=== PATIENT | female | born 1975 | race Caucasian/White ===

== ENCOUNTER → 2017-04-03 | Outpatient (CLI) | payer MEDICAID | LOC: ZCOL.LAB 19:17 | DX: J32.4 Chronic pansinusitis (principal) ==

== ENCOUNTER → 2018-05-22 | Outpatient (CLI) | payer BC | LOC: COL.RAD 06:53 | DX: R11.0 Nausea (principal) | CPT/HCPCS: A9541 ==

== ENCOUNTER → 2019-09-10 | Outpatient (CLI) | payer BC | LOC: COL.RAD 13:57 | DX: K59.09 Other constipation (principal) ==

== ENCOUNTER → 2019-11-22 | Outpatient (CLI) | payer BC | LOC: MC.RAD 13:45 | DX: Z12.31 Encounter for screening mammogram for malignant neoplasm of breast (principal) ==

== ENCOUNTER → 2020-04-25 | Outpatient (CLI) | payer BC ==
[~2020-04-25] VITALS: Ht 171.4 cm; Wt 116.6 kg
[~2020-04-25] MED LIST: CYMBALTA 20MG20 MG PO; GLUCOPHAGE XR750 MG PO; K-DUR 10 MEQ T10 MEQ PO; LASIX 20MG TABL20 MG PO; MULTIVITAMIN FO1 CAP PO; OZEMPIC0.25 MG/0. SQ; PROTONIX 40MG T40 MG PO
[2020-04-25 16:21] VITALS: BP 104/72; PULSE 88
== END ==
LOC: LIGHT 12-28 15:54
DX: E66.01 Morbid (severe) obesity due to excess calories (principal); Z68.39 Body mass index [BMI] 39.0-39.9, adult; E11.9 Type 2 diabetes mellitus without complications; Z79.84 Long term (current) use of oral hypoglycemic drugs
CPT/HCPCS: G0463

== ENCOUNTER → 2020-05-09 | Outpatient (CLI) | payer BC | LOC: LIGHT 10:49 | DX: E66.01 Morbid (severe) obesity due to excess calories (principal); Z68.39 Body mass index [BMI] 39.0-39.9, adult; E11.9 Type 2 diabetes mellitus without complications; K21.9 Gastro-esophageal reflux disease without esophagitis | CPT/HCPCS: G0463 ==

== ENCOUNTER → 2020-06-08 | Outpatient (CLI) | payer BC ==
[~2020-06-08] VITALS: Ht 171.4 cm; Wt 116.8 kg
[2020-06-08 15:23] VITALS: BP 104/60; PULSE 88
== END ==
LOC: LIGHT 15:06
DX: E66.8 Other obesity (principal); Z68.39 Body mass index [BMI] 39.0-39.9, adult; E11.9 Type 2 diabetes mellitus without complications
CPT/HCPCS: G0463

== ENCOUNTER → 2020-06-16 | Outpatient (CLI) | payer BC | LOC: LIGHT 15:09 ==

== ENCOUNTER → 2020-06-29 | Outpatient (CLI) | payer BC ==
[~2020-06-29] MED LIST changes: +GLUCOPHAGE1000 MG PO
== END ==
LOC: BHSO 09:01

== ENCOUNTER → 2020-07-03 | Outpatient (CLI) | payer BC ==
[~2020-07-03] VITALS: Ht 171.4 cm; Wt 117.0 kg
[2020-07-03 15:12] VITALS: BP 116/80; PULSE 64
== END ==
LOC: LIGHT 10:25
DX: E66.01 Morbid (severe) obesity due to excess calories (principal); Z68.39 Body mass index [BMI] 39.0-39.9, adult; K21.9 Gastro-esophageal reflux disease without esophagitis; E11.9 Type 2 diabetes mellitus without complications
CPT/HCPCS: G0463

== ENCOUNTER 2020-07-18 06:32 | Day surgery (SDC) | payer BC ==
[~2020-07-18] VITALS: Ht 172.7 cm; Wt 118.3 kg
[2020-07-18 07:12] VITALS: BP 114/59; PULSE 82; TEMP 98
[2020-07-18] MEDS ORDERED: K-TAB10 PO (07:25)
[2020-07-18] MEDS ORDERED: CYANOCOBAL1000 MCG/1 IM (07:27)
[2020-07-18] MEDS ORDERED: PROTONIX 40MG T40 MG PO (07:28)
[2020-07-18] MEDS ORDERED: CLARITIN 1010 MG/TAB PO (07:32)
[2020-07-18] MEDS ORDERED: LINZESS290CAP PO (07:33)
[2020-07-18] MEDS ORDERED: VITAMIN D 1.25 MG PO (07:35)
[2020-07-18 08:05] VITALS: BP 114/65; PULSE 80; TEMP 98.5
[2020-07-18 08:20] VITALS: BP 116/69; PULSE 72
[2020-07-18 08:35] VITALS: BP 118/69; PULSE 76
[2020-07-18 08:50] VITALS: BP 112/65; PULSE 73
--- NOTE | 2020-07-18 09:14 | NUR ---
Pt returned via cart to recliner in bay 3 s/p procedure. Ambulated with SBA to recliner. Pt drowsy. VSS-see flowsheet. Friend present in room and already spoke with Dr Butterfield after procedure was complete. Pt tolerated juice and water. IV removed with pressure dressing applied. Pt dressed for dc. Discharge teaching completed, pt and friend verbalized understanding. Pt taken via wheelchair to private vehicle for dc home with friend driving.
== END 2020-07-18 09:14 | disposition home or self-care (01) ==
LOC: SDCO 06:32
DX: K21.0 Gastro-esophageal reflux disease with esophagitis (principal); K44.9 Diaphragmatic hernia without obstruction or gangrene; K29.30 Chronic superficial gastritis without bleeding; E66.01 Morbid (severe) obesity due to excess calories; Z68.39 Body mass index [BMI] 39.0-39.9, adult; Z90.49 Acquired absence of other specified parts of digestive tract; E11.9 Type 2 diabetes mellitus without complications; F32.9 Major depressive disorder, single episode, unspecified; F41.9 Anxiety disorder, unspecified; I87.2 Venous insufficiency (chronic) (peripheral); Z86.19 Personal history of other infectious and parasitic diseases; Z79.84 Long term (current) use of oral hypoglycemic drugs; Z88.2 Allergy status to sulfonamides
CPT/HCPCS: J2250; J3010; J7030

== ENCOUNTER → 2020-08-03 | Outpatient (CLI) | payer BC ==
[~2020-08-03] VITALS: Ht 172.7 cm; Wt 118.6 kg
[~2020-08-03] MED LIST changes: +CLARITIN 1010 MG/TAB PO; +CYANOCOBAL1000 MCG/1 IM; -CYMBALTA 20MG20 MG PO; +CYMBALTA 60MG60 MG PO; +K-TAB10 PO; +LINZESS290CAP PO; +VITAMIN D 1.25 MG PO
[2020-08-03 14:40] VITALS: BP 106/76; PULSE 80
== END ==
LOC: LIGHT 14:31
DX: E66.01 Morbid (severe) obesity due to excess calories (principal); Z68.39 Body mass index [BMI] 39.0-39.9, adult; E11.9 Type 2 diabetes mellitus without complications
CPT/HCPCS: G0463

== ENCOUNTER 2020-08-09 14:10 | Inpatient (IN) | payer BC ==
[~2020-08-09] VITALS: Ht 172.7 cm; Wt 112.0 kg
[2020-09-27] VITALS (19 sets, daily range): BP systolic 101–126; BP diastolic 61–76; PULSE 67–103; TEMP 97.5–98
--- NOTE | 2020-09-27 06:10 | NUR ---
0546 PATIENT ADMITTED TO AMB UNIT FOR SURGERY. PATIENT WALKS WITH STEADY GAIT. PATIENT STATES SHE IS ANXIOUS BECAUSE SHE CANNOT HAVE SOMEONE WITH HER. REASSURED PATIENT. PATIENT ALERT AND ORIENTED X 3. CONSENT SIGNED. LUNGS CTA. HEART SOUNDS S1,S2 AND REGULAR. BOWEL SOUNDS HEARD IN ALL QUADRANTS. PATIENT ON HER PHONE ALOT WHILE GETTING PATIENT READY FOR SURGERY.
[2020-09-27] MEDS ORDERED: KLONOPIN 0.5MG0.5 MG PO (07:05)
--- NOTE | 2020-09-27 16:18 | NUR ---
1130-Pt continue in PACU for continued care. Pt rests with eyes closed, resp even/unlabored. VSS. pt incision sites secured with bandaid, continue cdi. Rickie drain to LLQ secured to abd. Minimal drainage noted in bulg. Mason cath to dd, secured to right thigh, clear yellow urine noted in tubing. Pt VSS. 1210-Pt resting off and on. c/o pain in epigastric region when she takes a breath in. Repeat dose dil 0.5mg given IV. 1425-Pt reporting discomfort in LLQ. reporting intermitten stabbing pain and "gassy pain". Dil 0.5mg given IV. 1513-Assistance called to help set up CAR RENTAL MANAGER for pain control. Pt rolled to semi-right side and pillow used to support back and abd. Pt reporting discomfort is better. 1540-Pt report called to david Vila. pt taken per bed to room 348. Monitors reapplied and activated. Pt reporting that her pain is under control. Denies needs. VSS.
--- NOTE | 2020-09-27 19:28 | NUR ---
Report received from VIVI Vila. Pt lying in bed. Reports pain controlled by PLATE STRAIGHTENER base rate. Denies needs at this time. Will continue to monitor.
--- NOTE | 2020-09-27 21:00 | NUR ---
Shift assessment complete. Pt lying in bed. SYNTHETIC CHEMIST pump with hydromorphone running, pt reports pain well controlled. SCDs on BLE. Abdominal lap sites x5 covered by bandaids, CDI. MINAL drain with 30 mls bright red output. Amson in place with clear yellow output. Reports increased pain with movement and deep breaths. Denies other needs at this time.
[2020-09-28] VITALS (7 sets, daily range): BP systolic 109–125; BP diastolic 57–71; PULSE 64–101; TEMP 97.7–98.5
--- NOTE | 2020-09-28 06:09 | NUR ---
Pain remains controlled with QUARTZ CUTTER. MINAL drain with 160 mls bright red output this shift. Sample collected and sent to lab for lipase levels. Blood sugars remain controlled without insulin administration this shift. Abdominal lap sites CDI. Mason with clear yellow output. Pt reports increasing feelings of gas and bloating this AM but reports difficulty passing gas. Continuing to monitor.
--- NOTE | 2020-09-28 07:30 | NUR ---
patient taken for x-ray via wheelchair.
--- NOTE | 2020-09-28 07:46 | NUR ---
PATIENT ARRIVED BACK TO ROOM VIA WHEELCHAIR FROM X-RAY.
--- NOTE | 2020-09-28 09:05 | NUR ---
PATIENT SHIFT ASSESSMENT COMPLETED AT THIS TIME. MINAL DRAIN FULL. THIS NURSE EMPTIED 80 MLS OF BLOODY DRAINAGE AND PLACED BACK TO BULB SUCTION. 20 ML OF BLOODY DRAINAGE IMMEDITELY FILLED INTO DRAIN, EMPTIED AND PLACED BACK TO BULB SUCTION. MINAL BULB BEGAN TO FILL AGAIN. VIVI CHAN CALLED. MINAL DRAIN CHECKED WITH SECOND NURSE, 20MLS EMPTIED A SECOND TIME. MINAL DRESSING IS CD&I. ABDOMINAL LAP SITES DRESSED WITH BANDAIDS AND ARE CD&I. CROCKETT DRAINING CLEAR YELLOW URINE. PAIN WELL CONTROLLED WITH SKIDDER RUNNER. WARM BLAKET TO ABDOMEN. PATIENT DENIES ANY OTHER NEEDS AT THIS TIME.
[2020-09-28 09:08] LABS: BASO % 0.3 % (0.0-2.0); EOS % 0.4 % (0-4.0); GRAN # 5.4 (1.4-6.5); GRAN % 77.6 % (42.2-75.2); HEMATOCRIT 37.4 % (37.0-47.0); HEMOGLOBIN 12.4 g/dl (12.5-16.0); LYMPH % 13.9 % (20.0-51.0); MEAN CELL VOLUME 91 fl (80.0-100.0); MEAN CORPUSCULAR HEMOGLOBIN 30 pg (27.0-31.0); MEAN CORPUSCULAR HGB CONC 33 g/dl (33.0-37.0); MEAN PLATELET VOLUME 10.4 fl (7.4-10.4); MONO # 0.5 (0.1-0.6); MONO % 7.5 % (1.7-9.3); PLATELET COUNT 218 K/mm3 (130-400); RED BLOOD COUNT 4.12 M/mm3 (4.10-5.30); REDCELL DISTRIBUTION WIDTH-CV 12.6 % (11.5-14.5)
[2020-09-28 09:10] LABS: ALBUMIN 3.7 gm/dL (3.5-5.0); BILIRUBIN,TOTAL 0.4 mg/dL (0.0-1.0); CALCIUM 8.4 mg/dL (8.4-10.2); CREATININE, serum 0.6 (0.52-1.25); POTASSIUM 3.7 mmol/L (3.4-5.0); TOTAL PROTEIN 5.8 gm/dL (6.4-8.2)
--- NOTE | 2020-09-28 12:00 | NUR ---
PATIENT STARTED ON CLEAR LIQUID GASTRIC BYPASS DIET. PATIENT TOLERATING WELL AT THIS TIME. PATIENT REPORTS THAT SHE IS NOW BURPING.
--- NOTE | 2020-09-28 12:06 | NUR ---
First visit from the matcher. No needs right now.
--- NOTE | 2020-09-28 14:27 | NUR ---
[facility] met with patient to discuss discharge planning. Patient lives in [place], [place] with her significant other, Jesus (ph#[phone]). Patient sees Dr. Huerta for primary care and obtains medications from [facility] with no difficulties. Patient does not use any DME and is independent with ADLS. Patient does not have Advance Directives. Patient is not and her legal next of kin would be her two biological children, Shubham (ph#[phone]) and Margaret. Patient states she has three "step children" also, Miller, Jorje, and Noemy. Patient plans to return home upon discharge with Jesus providing her transportation home. SW will continue to follow.
--- NOTE | 2020-09-28 16:44 | NUR ---
patient iv fluid rate changed to 75ml/hr per protocol. patient tolerating diet without difficulties. iv placed on standby. patient reports iv site is puffy and hurts.
--- NOTE | 2020-09-28 18:32 | NUR ---
PATIENT REPORTS THAT SHE IS VOIDING POST-CROCKETT REMOVAL. HAT EMPTIED BY PLASTIC TILE SETTER. PATIENT GIVEN PRN PO PAIN MEDICATION AFTER MINAL DRAIN WAS EMPTIED, SHE REPORTS THAT EMPTYING THE DRAIN CAUSES THE PAIN TO INCREASE. WILL REPORT OFF TO ONCOMING NURSE.
[2020-09-29 00:12] VITALS: BP 112/58; PULSE 73; TEMP 98.8
[2020-09-29 04:52] VITALS: BP 117/76; PULSE 75; TEMP 98.3
[2020-09-29 08:28] VITALS: BP 113/55; PULSE 77; TEMP 98.6
--- NOTE | 2020-09-29 08:39 | NUR ---
PATIENT HAD CALLED OUT REQUESTING PAIN MEDICATION. PATIENT REPORTS THAT THE PAIN SPIKED WHEN SHE WAS UP AMBULATING IN THE HALLWAYS AND WHEN SHE SAT BACK DOWN INTO BED. PATIENT STATES THAT THE PAIN IMPROVED ONCE SHE LAID DOWN. WILL PROVIDE PRN PAIN MEDICATION WITH AM MEDS. CALL LIGHT IN REACH. PATIENT DENIES ANY OTHER NEEDS AT THIS TIME.
[2020-09-29 09:17] LABS: BASO % 0.8 % (0.0-2.0); EOS # 0.1 (0.0-0.7); EOS % 1.9 % (0-4.0); GRAN # 3.2 (1.4-6.5); GRAN % 66.4 % (42.2-75.2); HEMOGLOBIN 12.2 g/dl (12.5-16.0); LYMPH # 1.1 (1.2-3.4); LYMPH % 22.7 % (20.0-51.0); MEAN CELL VOLUME 92 fl (80.0-100.0); MEAN CORPUSCULAR HEMOGLOBIN 31 pg (27.0-31.0); MEAN CORPUSCULAR HGB CONC 33 g/dl (33.0-37.0); MONO # 0.4 (0.1-0.6); MONO % 7.8 % (1.7-9.3); PLATELET COUNT 198 K/mm3 (130-400); REDCELL DISTRIBUTION WIDTH-CV 12.7 % (11.5-14.5)
[2020-09-29 09:22] LABS: HEMATOCRIT 36.6 % (37.0-47.0)
[2020-09-29 09:27] LABS: ALBUMIN 3.4 gm/dL (3.5-5.0); BILIRUBIN,TOTAL 0.4 mg/dL (0.0-1.0); CALCIUM 8.6 mg/dL (8.4-10.2); CREATININE, serum 0.61 (0.52-1.25); POTASSIUM 3.6 mmol/L (3.4-5.0); TOTAL PROTEIN 5.7 gm/dL (6.4-8.2)
[2020-09-29 11:40] VITALS: BP 101/85; PULSE 89; TEMP 98.5
--- NOTE | 2020-09-29 16:11 | NUR ---
PATIENTS DIET ADVANCED TO FULL LIQUIDS PER YOANDY-EN-Y POST-OP DIET ORDERS. PATIENT AMBULATING IN HALLWAYS INDEPENDENTLY THROUGHOUT THE SHIFT. CALL LIGHT IN REACH. PATIENT RESTING IN BED. MINAL DRAIN EMPTIED AND PRN PAIN MEDICATION GIVEN. WILL CONTINUE TO MONITOR.
[2020-09-29 16:13] VITALS: BP 107/62; PULSE 82; TEMP 98.1
--- NOTE | 2020-09-29 19:00 | NUR ---
PATIENT COMPLAINING OF IV SITE BOTHERING HER. DR. BREWSTER SAID OKAY TO REMOVE. IV REMOVED.
--- NOTE | 2020-09-29 19:20 | NUR ---
dr. bender notified that the patients iv has infiltrated. okay for patient to have no iv site.
[2020-09-29 20:08] VITALS: BP 132/77; PULSE 86; TEMP 98.7
--- NOTE | 2020-09-29 21:00 | NUR ---
PATIENT RESTING IN BED. PATIENT SAYS HER GAS PAINS ARE BOTHERING HER. SHE IS BURPING BUT NOT PASSING GAS. PATIENT TOOK LIQUID PAIN MEDICATION.
[2020-09-30 00:28] VITALS: BP 122/75; PULSE 8; PULSE 80; TEMP 98.4
--- NOTE | 2020-09-30 05:40 | NUR ---
Patient awake this morning with pain. Given more pain medication. Patient still having a lot of output from MINAL drain. Patient reports that she has started to pass gas.
[2020-09-30 07:02] LABS: BASO % 0.4 % (0.0-2.0); EOS # 0.1 (0.0-0.7); EOS % 2.3 % (0-4.0); GRAN # 4.2 (1.4-6.5); GRAN % 75.1 % (42.2-75.2); HEMATOCRIT 38.7 % (37.0-47.0); HEMOGLOBIN 12.8 g/dl (12.5-16.0); LYMPH # 0.8 (1.2-3.4); LYMPH % 14.1 % (20.0-51.0); MEAN CELL VOLUME 90 fl (80.0-100.0); MEAN CORPUSCULAR HEMOGLOBIN 30 pg (27.0-31.0); MEAN CORPUSCULAR HGB CONC 33 g/dl (33.0-37.0); MEAN PLATELET VOLUME 10.6 fl (7.4-10.4); MONO # 0.4 (0.1-0.6); MONO % 7.7 % (1.7-9.3); PLATELET COUNT 224 K/mm3 (130-400); RED BLOOD COUNT 4.31 M/mm3 (4.10-5.30); REDCELL DISTRIBUTION WIDTH-CV 12.5 % (11.5-14.5)
[2020-09-30 07:12] LABS: ALBUMIN 3.5 gm/dL (3.5-5.0); BILIRUBIN,TOTAL 0.5 mg/dL (0.0-1.0); CALCIUM 8.8 mg/dL (8.4-10.2); CREATININE, serum 0.71 (0.52-1.25); POTASSIUM 3.4 mmol/L (3.4-5.0); TOTAL PROTEIN 5.9 gm/dL (6.4-8.2)
[2020-09-30 08:00] VITALS: BP 117/71; PULSE 80; TEMP 98.3
--- NOTE | 2020-09-30 09:00 | NUR ---
Patient alert and oriented, answers questions appropraitely. See assessment. Abdomen soft, non tender, non distended. Bowel sounds active x4 quads. +Flatus. No bowel movenment. Lap sites to abdomen with edges well approximated, no redness or drainage noted. MINAL drain to LLQ, compressed, moderated amount of serosanguinous drainage noted. Post op exercises reviewed with patient, no c/o at this time.
[2020-09-30] MEDS ORDERED: NORCOELIX PO (10:10)
[2020-09-30] MEDS ORDERED: ZOFRAN 4MG T4 MG/TAB PO (10:11)
--- NOTE | 2020-09-30 10:30 | NUR ---
Dr Butterfield here to see patient, see orders.
--- NOTE | 2020-09-30 11:12 | NUR ---
MINAL drain removed per drs order.
--- NOTE | 2020-09-30 11:15 | NUR ---
Discharge instructions reviewed with patient, verbalized understanding. Discharged ambulatory to auto/home with family at 1115.
== END 2020-09-30 11:15 | disposition home or self-care (01) | DRG 621 ==
LOC: SURG 09-13 07:30 → INPTSU 09-27 05:43 → SURG 09-27 07:30
PROVIDERS: ADMIT Surgery
PROC: 0D164ZA Bypass Stomach to Jejunum, Percutaneous Endoscopic Approach (ICD-10-PCS; principal; 2020-09-27 07:30)
DX: E66.01 Morbid (severe) obesity due to excess calories (principal); E11.9 Type 2 diabetes mellitus without complications; K21.9 Gastro-esophageal reflux disease without esophagitis; Z68.38 Body mass index [BMI] 38.0-38.9, adult; F41.9 Anxiety disorder, unspecified; F32.9 Major depressive disorder, single episode, unspecified; Z90.49 Acquired absence of other specified parts of digestive tract; Z87.891 Personal history of nicotine dependence
CPT/HCPCS: A4314; C9113; J0690; J1100; J1170; J1650; J1956; J2175; J2250; J2270; J2370; J2405; J2550; J2704; J3010; J3480; J7120

== ENCOUNTER 2020-12-14 09:28 | Observation (INO) | payer BC ==
[~2020-12-14] VITALS: Ht 170.2 cm; Wt 98.2 kg
[2020-12-14] VITALS (9 sets, daily range): BP systolic 96–112; BP diastolic 45–96; PULSE 56–86; TEMP 97.2–98.1
[~2020-12-14 09:28] MED LIST changes: +KLONOPIN 0.5MG0.5 MG PO; +NORCOELIX PO; +ZOFRAN 4MG T4 MG/TAB PO
[2020-12-14] MEDS ORDERED: COLLAGEN BIOTIN PO (12:14)
[2020-12-14] MEDS ORDERED: MCT OIL PO (12:15)
[2020-12-14] MEDS ORDERED: CALCIUM CARBON650 M2 PO (12:16)
--- NOTE | 2020-12-14 16:20 | NUR ---
Pt to OR with OR nurseWanda. Report given
--- NOTE | 2020-12-14 18:30 | NUR ---
Patient arrived to the floor from surgery at 1745. She is alert and oriented. Denies pain and nausea at this time. Oriented patient to room. She was asking about food, explained how to order. Her boyfriend is at bedside. Explained that she will be on post-op vital signs for a few hours. Lapsites to abdomen are well approximated. Patient is tolerating clear liquids well. No other changes at this time. Call light within reach.
--- NOTE | 2020-12-14 23:00 | NUR ---
Patient is complaining of being itchy all over and requests to take a shower. IV site wrapped up and patient assisted into the shower.
[2020-12-15 00:23] VITALS: BP 100/57; PULSE 65; TEMP 98.8
[2020-12-15 04:37] VITALS: BP 92/52; PULSE 61; TEMP 98.1
--- NOTE | 2020-12-15 05:05 | NUR ---
Patient doing well this morning. Still having pain to her incisions. [place] given for pain PRN throughout the shift. Patient is drinking plenty of fluids. No other needs at this time.
--- NOTE | 2020-12-15 07:51 | NUR ---
PT INDEPENDENT IN ROOM AND HALLS. AMBULATING AD YOON. STEADY GAIT. A/O X3. PAIN CONTROLLED WITH PO PAIN MEDS. PT REPORTS REMOVING BANDAIDS TO LAP SITES WHICH ARE CDI. LAST DOSE OF IV ABX GIVEN.
[2020-12-15 08:29] VITALS: BP 106/50; PULSE 71; TEMP 98.2
[2020-12-15] MEDS ORDERED: DIFLUCAN200 MG PO (09:46)
[2020-12-15] MEDS ORDERED: NORCO 325 MG-51 TAB PO (09:46)
--- NOTE | 2020-12-15 10:46 | NUR ---
DISCHARGE COMPLETE INSTRUCTIONS REVIEWED WITH PT AND FAMILY. PT WAITING TO WALK OUT.
--- NOTE | 2020-12-15 10:56 | NUR ---
PT LEFT AMBULATORY WITH FAMILY AND STAFF.
== END 2020-12-15 10:57 | disposition home or self-care (01) ==
LOC: SDCO 09:28 → SURG 17:42 → SDCO 12-15 09:37 → SURG 12-15 09:38
PROVIDERS: ADMIT Surgery
DX: K35.80 Unspecified acute appendicitis (principal); E11.9 Type 2 diabetes mellitus without complications; I87.2 Venous insufficiency (chronic) (peripheral); E66.01 Morbid (severe) obesity due to excess calories; J45.909 Unspecified asthma, uncomplicated; F41.9 Anxiety disorder, unspecified; F32.9 Major depressive disorder, single episode, unspecified; K58.9 Irritable bowel syndrome, unspecified; Z86.16 Personal history of COVID-19; K21.9 Gastro-esophageal reflux disease without esophagitis; Z87.891 Personal history of nicotine dependence; Z88.2 Allergy status to sulfonamides; Z98.84 Bariatric surgery status; Z79.899 Other long term (current) drug therapy
CPT/HCPCS: OP; G0378; J2543; J2704; J2710; J3010; J7030